=== PATIENT | male | born 1990 | race Asian ===

== ENCOUNTER 2017-02-16 03:51 | Inpatient (IN) | payer OTHER ==
[~2017-02-16] VITALS: Ht 167.6 cm; Wt 86.5 kg
--- NOTE | ~2017-02-16 | CO ---
Unit #: [id number] #: [id number] Patient: DENISE LEDEZMA [id number] [facility] [address] [place], [place] [address] [id number] I MR#: [id number] NAME: DENISE LEDEZMA ROOM: CIC2 Age: 26 Sex: M Admission Date: 02/16/2017 : 1990 Attending Physician: Greg English M.D. Primary Care Physician: Primary Care Physician No Consultation Date: 02/16/2017 CONSULTATION REPORT REQUESTING PHYSICIAN Dr. Petty. REASON FOR CONSULTATION Sepsis. HISTORY OF PRESENT ILLNESS This is a 26-year-old gentleman, who is currently on the vent and is unresponsive. History was obtained from the girlfriend who lives with him. According to her, the patient was visiting [place] and when she was talking to him over the phone on the video call, she felt that he was falling asleep while driving, so she asked him to kiln puller and she went to get him. In [place], she found him at a remote location and he was sleeping in the car. She brought him back. During the trip back to [place], he was sleeping all the time in the car, but he never had any fever or headache. He fell more asleep at home and developed what appeared to be cyanosis of the lips and she put him in the car and brought him to the [facility], where he was intubated and transferred to [facility]. Apparently, he was given Narcan and his drug screen was positive for multiple substances. According to the fiancee, the patient does not use IV drugs. She actually denies that he uses any drugs at all other than occasional marijuana. He was put on vancomycin and Zosyn. ID was consulted. The patient is currently on the vent, unresponsive, and sedated. He has no fever, but is tachycardic and there is no hypotension either. He has no skin rash other than few bug bites in the legs. He had elevated lactic acid level and leukocytosis and there was hypotension initially seen in the ER. Further information is not available at this time. PAST MEDICAL HISTORY According to the fiancee, he does not have any chronic medical problems. HOME MEDICATIONS None. In the hospital, he is on Zosyn, vancomycin, IV fluids, propofol. He did receive Norcuron and naloxone in the ER. ALLERGIES None. PERSONAL HISTORY He is a construction field engineer. According to the fiancee, he smokes marijuana occasionally. He has history of IV drug use years ago, but she had not been seen him doing IV drugs in a long time. No alcohol other than social drinks and some smoking. Unit #: [id number] #: [id number] Patient: DENISE LEDEZMA FAMILY HISTORY Unknown. PHYSICAL EXAMINATION GENERAL: Reveals a young male, who is vent, orally intubated, unresponsive. I think his neck is a little stiff, but I cannot be 100% sure. VITAL SIGNS: Temperature is 99, heart rate 120, respirations 20, blood pressure 105/77. His lowest blood pressure was in 80s in the ER. HEENT: Pupils are constricted. There is no rash other than few bug bites in the legs. LUNGS: Clear to percussion and auscultation. HEART: Sounds normal. There are no murmurs. ABDOMEN: Soft and nontender without organomegaly or ascites. Bowel sounds normal. NEUROLOGIC: He is obtunded, unresponsive, and sedated. He does not have any flaccidity of the muscles and deep tendon reflexes are depressed. DIAGNOSTIC STUDIES LABORATORY RESULTS: Lactic acid 7.5, BUN is 14, creatinine 1.7. Electrolytes normal. Glucose 250. AST 79, ALT 49, alkaline phosphatase 111, bilirubin normal. White count 23.3, hemoglobin 12.9, platelets 274, neutrophils 72%. Alcohol was less than 0.5. Urinalysis shows 10 to 25 rbc's. Urine drug screen was positive for benzodiazepine, cocaine, amphetamines, marijuana, and opiates. IMPRESSION Respiratory failure with mental status, unclear etiology. He suddenly could have drug overdose, but central nerve system infection is difficult to exclude especially West Nile encephalitis. RECOMMENDATIONS I have spoken with Dr. Martin regarding doing a lumbar puncture at the bedside and checking CSF for cell count, glucose protein, Gram stain, and HCV PCR. We will also keep 5 mL in the lab for further testing if necessary. If the CSF is entirely clear, then CSF infection becomes a very unlikely. In this case, antibiotics may have to be discontinued. In the meantime, I will continue him on vancomycin and change Zosyn to high-dose ceftriaxone and add acyclovir until the infection becomes clear. Thank you Dr. Petty for asking me to see this patient. We will follow along with you. Dictated by... Kelly Oneal/jossie TD: 02/18/2017 03:09 JOB #: [id number] Unit #: [id number] #: [id number] Patient: DENISE LEDEZMA CONSULTATION REPORT Page 1 of 1 X Davion Winkler MD X CONSULTATION REPORT
--- NOTE | ~2017-02-16 | CR72 ---
[facility] A Service of [facility] RADIOLOGY TEXT RESULTS PATIENT: DENISE LEDEZMA LOCATION: [address] : [birth year] UNIT #: [id number] AGE: [address]: Greg English MD SEX: M ORDER DR: [id number] [place] [id number] [facility]. [place], [place] [address] [id number] I MR#: [id number] Acc #: [id number] NAME: DENISE LEDEZMA : 1990 SEX: M STUDY DATE/TIME: 02/16/2017 7:09 UNIT: [facility] ROOM: [facility] STUDY DESCRIPTION: CR Chest Single View Portable Attending Physician: Greg English M.D. Ordering Physician: Sorin Singh M.D. Primary Care Physician: Primary Care Physician No MEDICAL IMAGING REPORT This report is preliminary unless electronic signature is present EXAM Portable AP view of the chest COMPARISON February 16, 2017 at 4:25 a.m. INDICATION 26-year-old male with respiratory failure requiring endotracheal intubation today. Dyspnea and altered mental status today. Possible drug overdose. Endotracheal tube placement. FINDINGS AND IMPRESSION There is adequate position of endotracheal tube with the tip terminating 4.5 cm above the lyn. No evidence of pneumothorax. There is increased hazy attenuation over the left lower chest which may reflect prominent soft tissue shadow but developing small left pleural effusion cannot be excluded. Allowing for differences in lung volumes there are likely stable interstitial and alveolar opacities in the right lung possibly reflecting aspiration. There is increased medial left basilar lung opacity likely reflecting atelectasis. Cardiomediastinal silhouette is within normal limits. Dictated by... Charles Britt M.D. THIS IS AN ELECTRONICALLY VERIFIED REPORT Charles Britt M.D. at 02/25/2017 1:24 AM Baljeet TD: 02/17/2017 03:30 [facility] A Service [facility] RADIOLOGY TEXT RESULTS PATIENT: DENISE LEDEZMA LOCATION: [address] : [birth year] UNIT #: [id number] AGE: [address]: Greg English MD SEX: M ORDER DR: JOB #: [id number] MEDICAL IMAGING REPORT Page 1 of 1 COPY
--- NOTE | ~2017-02-16 | HP ---
Unit #: [id number] #: [id number] Patient: DENISE LEDEZMA [id number] [facility] [address] [place], [place] [address] [id number] I MR#: [id number] NAME: DENISE LEDEZMA ROOM: 60115 Age: 26 Sex: M Admission Date: 02/16/2017 : 1990 Attending Physician: Inocencio Mabry M.D. Primary Care Physician: No Primary Care Physician HISTORY AND PHYSICAL HISTORY OF PRESENT ILLNESS This is a 26-year-old male with a history of IV drug abuse in the past and also history of polysubstance abuse. As per herberth at the bedside, tells that he has been gone for four days with his friends and he came home with altered mental status. EMS was called. He received several doses of Narcan, came to the emergency room where he was intubated due to the agitation. He was brought into [facility] where he has been sedated with a Diprivan drip. No history is available from the patient. He is unresponsive, nonverbal, intubated. On his labs, his lactic acid was 7.5. On admission, his white cell count is over 23,000. Has been hypotensive with a blood pressure of 90/49 this morning. He has been treated with IV fluids aggressively in the ER. Received a dose of Zosyn and vancomycin in ER. He is being admitted at the unit bed. REVIEW OF SYSTEMS Not obtainable from the patient. SOCIAL HISTORY History of IV drug abuse and polysubstance abuse. Lives with adam. MEDICATIONS Unknown. FAMILY HISTORY Unknown. PHYSICAL EXAMINATION GENERAL: He is sedated and intubated. VITAL SIGNS: His temperature is 98.1 rectal, pulse is 93, respirations 24, blood pressure 105/77. HEENT: Pupils are pinpoint and constricted, very minimally reactive to light. NECK: Supple. No thyromegaly noted. No bruit. CHEST: Decreased air entry bilaterally. CARDIOVASCULAR: Regular rhythm. S1, S2. ABDOMEN: Soft, nontender. No masses palpable. EXTREMITIES: No edema noted. No ulcers. DIAGNOSTIC STUDIES LABORATORY: On his labs, blood gas is 7.36, pCO2 is 41.6, pO2 is 76, bicarbonate 23.7. However, on admission his pH was 7.22. Chemistry: Glucose 250, creatinine 1.7, sodium 138, potassium 4, chloride 100, CO2 is 24. Lactic acid is 7.5. AST 79, ALT 49. Hematology: White cell count 23.3, hemoglobin 12.9, platelets 274,000. Urinalysis was negative, 04-16 Unit #: [id number] #: [id number] Patient: DENISE LEDEZMA RBCs, no bacteria. Urine toxicology is positive for cocaine, benzodiazepines, marijuana, opiates. Negative for barbiturates. ASSESSMENT 1. Respiratory failure secondary to the polysubstance overdose. 2. Polysubstance drug abuse. 3. History of IV abuse. 4. Sepsis, secondary to the above. PLAN 1. Admit to the intensive care unit. 2. Aggressive IV hydration with normal saline. 3. IV antibiotics, start on vancomycin and Zosyn. Pharmacy will dose the antibiotics. Get infectious disease consult. 4. Consult pulmonary, Dr. Martin. 5. Check blood cultures. 6. Deep venous thrombosis prophylaxis. 7. Monitor electrolytes. 8. Check 2D echo. 9. Check CT scan of the head. Dictated by Kelly Rosario/oziel TD: 02/16/2017 10:13 JOB #: [id number] HISTORY AND PHYSICAL Page 1 of 1 X Franco Petty MD HISTORY AND PHYSICAL
--- NOTE | ~2017-02-16 | CO ---
Unit #: [id number] #: [id number] Patient: DENISE LEDEZMA [id number] [address] [place], [place] [address] [id number] I MR#: [id number] NAME: DENISE LEDEZMA ROOM: [facility] Age: 26 Sex: M Admission Date: 02/16/2017 : 1990 Attending Physician: Greg English M.D. Primary Care Physician: No Primary Care Physician CONSULTATION REPORT REASON FOR CONSULTATION Critical care management. CHIEF COMPLAINT Altered mental status. 26-year-old male, with a past medical history of IV drug use, presented with a complaint of altered mental status. Was found to be hypoxic and intubated with altered mental status and brought into the emergency room. I am seeing the patient at bedside. Currently intubated, sedated. REVIEW OF SYSTEMS Unobtainable. PAST MEDICAL HISTORY IV drug use. MEDICATION Unknown. FAMILY HISTORY Unknown. PHYSICAL EXAMINATION VITAL SIGNS: Temperature 98, pulse 87, respirations 16, blood pressure is 110/70. NEUROLOGICAL: Intubated, sedated. CVS: S1+ S2. RESPIRATIONS: Bilateral air entry, bilateral mild rhonchi. GI: Nontender, soft. Bowel sounds positive. EXTREMITIES: No edema. SKIN: No rashes, no ulcers. LYMPHATIC: No lymphadenopathy. DIAGNOSTIC STUDIES Labs and imaging has been reviewed. ASSESSMENT AND PLAN 1. Acute respiratory failure. 2. Altered mental status. 3. Drug overdose. 4. Leukocytosis. 5. Aspiration pneumonia. Unit #: [id number] #: [id number] Patient: DENISE LEDEZMA Plan is to continue IV antibiotics, IV hydration, oxygen, bronchodilator. Monitor creatinine. GI and DVT prophylaxis. Please see orders for detailed plan. Thank you very much for this consultation. Prognosis is guarded. Discussed with the family at the bedside. Dictated by... Kelly Chapa/chicho TD: 02/17/2017 05:02 JOB #: [id number] CONSULTATION REPORT Page 1 of 1 X Kelly Martin MD X CONSULTATION REPORT
--- NOTE | ~2017-02-16 | EKG ---
PATIENT: DENISE LEDEZMA UNIT #: [id number] Ventricular Rate: 116 BPM Atrial Rate: 116 BPM P-R Interval: 150 ms QRS Duration: 82 ms Q-T Interval: 332 ms QTC Calculation(Bezet): 461 ms P Branch: 73 degrees Calculated R Branch: 81 degrees Calculated T Branch: 51 degrees Diagnosis Line: Sinus tachycardia Diagnosis Line: Otherwise normal ECG Diagnosis Line: No previous ECGs available Diagnosis Line: Confirmed by MACKENZIE FERNANDEZ MD ([id number]) on Diagnosis Line: 02/17/2017 1:50:48 PM INTERPRETING MD: REBECCA WALKER
--- NOTE | ~2017-02-16 | CT71 ---
[facility] A Service [facility] RADIOLOGY TEXT RESULTS PATIENT: DENISE LEDEZMA LOCATION: [address] : [birth year] UNIT #: [id number] AGE: [address]: Greg English MD SEX: M ORDER DR: [id number] [address] [address] [id number] I MR#: [id number] Acc #: [id number] NAME: DENISE LEDEZMA : 1990 SEX: M STUDY DATE/TIME: 02/16/2017 10:04 UNIT: [facility] ROOM: [facility] STUDY DESCRIPTION: CT Head Wo Contrast Attending Physician: Greg English M.D. Ordering Physician: Sorin Singh M.D. Primary Care Physician: Primary Care Physician No MEDICAL IMAGING REPORT This report is preliminary unless electronic signature is present EXAM CT head without contrast INDICATION Unresponsive today. Respiratory failure. Mechanical ventilation. Concern for intracranial hemorrhage. TECHNIQUE CT of the head was performed without contrast. This CT examination was performed with one or more of the following radiation dose reduction techniques: automatic exposure control, adjustment of mA and/or kV according to patient size, and iterative reconstruction. COMPARISON None. FINDINGS There is no intracranial hemorrhage. There is no evidence for acute cortical based infarction, focal mass lesion or hydrocephalus. Mucosal thickening and opacification of multiple paranasal sinuses. Bone windows are unremarkable. IMPRESSION No acute intracranial abnormality. Dictated by... Chris Vivas M.D. THIS IS AN ELECTRONICALLY VERIFIED REPORT Chris Vivas M.D. at 02/17/2017 7:34 AM ARS/valentin [facility] A Service [facility] RADIOLOGY TEXT RESULTS PATIENT: DENISE LEDEZMA LOCATION: [address] : [birth year] UNIT #: [id number] AGE: [address]: Greg English MD SEX: M ORDER DR: TD: 02/17/2017 06:25 JOB #: [id number] MEDICAL IMAGING REPORT Page 1 of 1 COPY
--- NOTE | ~2017-02-16 | CR72 ---
[facility] A Service of [facility] RADIOLOGY TEXT RESULTS PATIENT: DENISE LEDEZMA LOCATION: CICCU2 CICCU2-06 : [birth year] UNIT #: [id number] AGE: [address]: Greg English MD SEX: M ORDER DR: [id number] [address] [address] [id number] MR#: [id number] Acc #: [id number] NAME: DENISE LEDEZMA : 1990 SEX: M STUDY DATE/TIME: 02/16/2017 4:25 UNIT: SED ROOM: STUDY DESCRIPTION: CR Chest Single View Portable Attending Physician: Miguel Belcher M.D. Ordering Physician: Miguel Belcher M.D. Primary Care Physician: No Primary Care Physician MEDICAL IMAGING REPORT This report is preliminary unless electronic signature is present. EXAM Portable chest. HISTORY Acute mental status decline. Possible drug overdose today. Intubated. Respiratory distress. FINDINGS ETT tip is 3 cm above the lyn. Moderate patchy infiltrates in the right upper lobe and medial right lower lobe. These could be secondary to pneumonia or aspiration. Left lung is clear. Cardiac size and pulmonary vascularity are within normal limits. Dictated by... Omar Blevins M.D. THIS IS AN ELECTRONICALLY VERIFIED REPORT Omar Blevins M.D. at 02/17/2017 4:50 AM DFArianne/manas TD: 02/17/2017 00:13 JOB #: [id number] MEDICAL IMAGING REPORT Page 1 of 1
[2017-02-16 04:19] LABS: BASOPHIL# 0.1 X10e3 (0-0.3); BASOPHIL% 0.6 % (0-2.5); EOSINOPHIL# 1.4 X10e3 (0-0.7); EOSINOPHIL% 5.9 % (0.0-7.0); HEMATOCRIT 45.4 % (38.0-50.0); HEMOGLOBIN 12.9 gm/dL (13.0-16.0); LYMPHOCYTE# 4.5 X10e3 (1.0-3.5); LYMPHOCYTE% 19.3 % (17.0-45.0); MEAN CELL VOLUME 68.4 FL (83-96); MEAN CORPUSCULAR HEMOGLOBIN 19.4 PG (28-34); MEAN CORPUSCULAR HGB CONC 28.4 g/dL (30-36); MEAN PLATELET VOLUME 8.9 FL (6.5-11.5); MONOCYTE# 0.5 X10e3 (0-1.0); MONOCYTE% 2.2 % (3.0-12.0); NEUTROPHIL# 16.8 X10e3 (1.5-7.1); PLATELET COUNT 274 X10e3 (140-420); RED BLOOD COUNT 6.65 X10e (3.90-5.60); RED CELL DISTRIBUTION WIDTH 16.3 % (11.0-15.5); WHITE BLOOD COUNT 23.3 X10e3 (4.0-10.5)
[2017-02-16 04:24] LABS: INR 1.1; PROTHROMBIN TIME (PATIENT) 12.4 SECONDS (9.5-12.4)
[2017-02-16 04:27] LABS: DIFF IND YES
[2017-02-16 04:30] LABS: POC - CKMB 2.7 ng/mL (0.0-7.9)
[2017-02-16 04:31] LABS: PARTIAL THROMBOPLASTIN TIME 25.3 SECONDS (25.6-38.1)
[2017-02-16 04:31] LABS: POC - TROPONIN <0.05 ng/mL (<=0.05)
[2017-02-16 04:33] LABS: ALBUMIN SERUM 4.3 g/dL (3.5-5.0); BILIRUBIN, DIRECT 0.1 mg/dL (0.0-0.2); BILIRUBIN,INDIRECT 0.4 mg/dL (0.0-0.9); BILIRUBIN,TOTAL 0.5 mg/dL (0.2-2.0); BUN/CREATININE RATIO 8.23; CALCIUM SERUM 8.7 mg/dL (8.4-10.2); CREATININE SERUM 1.7 mg/dL (0.6-1.4); GLOM FILT RATE Estimated 53.7 mL/min (>60); PROTEIN TOTAL SERUM 7.6 g/dL (6.0-8.3)
[2017-02-16 04:46] LABS: DIFFERENTIAL COMMENT Y; PLATELET ESTIMATE NORMAL (NORMAL)
[2017-02-16 04:51] LABS: URINE SOURCE CATH
[2017-02-16 04:55] LABS: URINE APPEARANCE CLEAR; URINE BILIRUBIN NEG (NEG); URINE BLOOD 1+ (NEG); URINE COLOR YELLOW; URINE GLUCOSE 50 MG/DL (NORM); URINE KETONE NEG (NEG); URINE LEUKOCYTE ESTERASE NEG (NEG); URINE NITRATE NEG (NEG); URINE PROTEIN 1+ (NEG); URINE SPECIFIC GRAVITY 1.025 (1.003-1.035)
[2017-02-16 04:59] LABS: ARTERIAL BLD GAS O2 SATURATION 97.5 % (90.0-100.0); ARTERIAL BLOOD GAS CARBOXY HB 2.8 %sat (0.0-9.0); ARTERIAL BLOOD GAS HCO3 20.5 mmol/L
[2017-02-16 05:01] LABS: ARTERIAL BLOOD GAS ART SITE RIGHT RADIAL; ARTERIAL BLOOD GAS MET HB <0.0 %sat (0.0-2.0); ARTERIAL DRAW? YES
[2017-02-16 05:04] LABS: MICRO INDICATED? YES
[2017-02-16 05:07] LABS: CULTURE INDICATED? NO; URINE BACTERIA NEG (NEG); URINE MUCUS PRESENT; URINE SQUAMOUS EPITHELIAL CELL FEW /[HPF]
[2017-02-16 05:10] LABS: AMPHETAMINE POS (NEG); BARBITURATES NEG (NEG); BENZODIAZEPINES POS (NEG); COCAINE POS (NEG); MARIJUANA POS (NEG); OPIATES POS (NEG); TRICYCLIC ANTIDEPRESSANTS NEG (NEG); U METHADONE NEG (NEG)
[2017-02-16 07:42] LABS: ARTERIAL BLD GAS O2 SATURATION 94.6 % (90.0-100.0); ARTERIAL BLOOD GAS HCO3 23.7 mmol/L; ARTERIAL BLOOD GAS MET HB 1.3 %sat (0.0-2.0); ARTERIAL BLOOD GAS PCO2 41.6 mmHg (35.0-45.0); ARTERIAL BLOOD GAS pH 7.364 (7.350-7.450)
[2017-02-16 07:43] LABS: ARTERIAL BLOOD GAS ALLEN TEST NORMAL; ARTERIAL BLOOD GAS ART SITE RIGHT RADIAL; ARTERIAL BLOOD GAS DELIVERY VENT; ARTERIAL BLOOD GAS VENT MODE A/C; ARTERIAL DRAW? YES
== END 2017-02-16 20:52 | disposition left against medical advice (07) | DRG 917 ==
LOC: SED 03:51 → CED 04:25 → CEDOF 07:40 → CED 08:11 → CEDOF 08:11 → CICCU2 08:11 → CEDOF 10:31 → CICCU2 20:52
PROVIDERS: Emergency Medicine
PROC: 5A1935Z Respiratory Ventilation, Less than 24 Consecutive Hours (ICD-10-PCS; principal; 2017-02-16)
PROC: B24BYZZ Ultrasonography of Heart with Aorta using Other Contrast (ICD-10-PCS; 2017-02-16)
DX: T50.901A Poisoning by unspecified drugs, medicaments and biological substances, accidental (unintentional), initial encounter (principal); A41.9 Sepsis, unspecified organism; R65.21 Severe sepsis with septic shock; J96.01 Acute respiratory failure with hypoxia; J69.0 Pneumonitis due to inhalation of food and vomit; N17.9 Acute kidney failure, unspecified; D72.829 Elevated white blood cell count, unspecified; R73.9 Hyperglycemia, unspecified
CPT/HCPCS: 31500; 36600; 51702; 70450; 71010; 80048; 80076; 80307; 81003; 82553; 82803; 82947; 83605; 83874; 84484; 85025; 85610; 85730; 87040; 93005; 93306; 94002; 94640; 94760; 96365; 96375; 99291; 99292; G0480; J0133; J0330; J0696; J2543; J3370

== ENCOUNTER 2017-02-17 11:07 | Inpatient (IN) | payer OTHER ==
[~2017-02-17] VITALS: Ht 167.6 cm; Wt 87.0 kg
--- NOTE | ~2017-02-17 | HP ---
Unit #: [id number] #: [id number] Patient: DENISE LEDEZMA [id number] [address] [address] [id number] I MR#: [id number] NAME: DENISE LEDEZMA ROOM: 07[address] Age: 26 Sex: M Admission Date: 02/17/2017 : 1990 Attending Physician: Catie Dutta M.D. Primary Care Physician: No Primary Care Physician HISTORY AND PHYSICAL CHIEF COMPLAINT Intubated yesterday, short of air, worse today. HISTORY OF PRESENT ILLNESS The patient is a 26-year-old male with past medical history of polysubstance abuse, who presented to the emergency department for evaluation of the above. Of note the patient was hospitalized yesterday following overdose. His tox screen at that time was positive for benzodiazepines, cocaine, amphetamines, marijuana and opiates. He was intubated. He received vancomycin and Zosyn. He apparently extubated himself and left against medical advice. Today he returned due to body-wide pain and shortness of breath. Regarding the overdose, the patient apparently was in [place] for a . He denies IV drug use. He states that he "may have touched some drugs." He does have a history of IV drug use. He has never been in rehab. The patient was apparently "too tired" to drive home. His girlfriend drove him home from [place]. He was able to walk in their home but then he became somewhat unresponsive and EMS was called. The patient denies any suicidal or homicidal ideations. Today, as stated above, he reports body-wide pain. He has had a productive cough and shortness of breath. He states that he has had pain in the chest that he describes as "sharp." He denies any vomiting or diarrhea. He states that his urine was initially bloody. He reportedly pulled out his Mary catheter before the balloon was deflated. Urine is no longer bloody. Upon arrival in the emergency room initial pulse and blood pressure were 95 and 140/82 respectively. Oxygen saturation 100% on room air. Chest x-ray is negative. Lactic acid is 2. CPK is 244. White blood cell count 15.6. Urine tox screen today is positive for benzodiazepines, cocaine, marijuana and opiates. He was given vancomycin, Zosyn and tobramycin in the emergency department. He is being admitted [facility] for evaluation and further treatment. PAST MEDICAL HISTORY 1. Admission to [facility] February 16, 2017 for polysubstance overdose, unintentional, requiring intubation. The patient left AMA. 2. The patient denies hospitalizations prior to yesterday. PAST SURGICAL HISTORY Unit #: [id number] #: [id number] Patient: DENISE LEDEZMA None. SOCIAL HISTORY The patient lives with his girlfriend. He has a history of IV drug use but states that his last use was over a year ago. He denies alcohol. He smokes a pack of cigarettes daily. He is unemployed. FAMILY HISTORY Family history is notable for his mother having arthritis. ALLERGIES No known allergies. HOME MEDICATIONS None. REVIEW OF SYSTEMS A complete review of systems is negative except as indicated in the HPI. DIAGNOSTIC STUDIES CARDIOVASCULAR: EKG shows normal sinus rhythm with a rate of 97 beats per minute. IMAGING: Chest x-ray shows no acute abnormality. LABORATORY: Lactic acid is 2. INR is 1.2. CPK is 244. Alcohol level is less than 5. BNP is 94. Comprehensive metabolic panel notable for a glucose of 127, ALT is 46. Complete blood count notable for white blood cell count of 15.6, hemoglobin and hematocrit 11.7 and 38.7 respectively. Troponin is less than 0.05. Urine tox screen positive for benzodiazepines, cocaine, marijuana, opiates. Urinalysis notable for trace protein. PHYSICAL EXAMINATION VITAL SIGNS: Temperature is 97.8. Pulse 95. Respirations 18. Blood pressure 140/82. Oxygen saturation 100% on room air. GENERAL: The patient is awake and alert, in no acute distress. HEENT: The head is atraumatic. Mucous membranes are moist. NECK: Neck is supple. Trachea is midline. CARDIOVASCULAR: Regular rate and rhythm. LUNGS: Demonstrate a few scattered rhonchi. Breathing is not labored. ABDOMEN: Abdomen is soft, nontender, with bowel sounds present in all four quadrants. EXTREMITIES: Nontender, with no pedal edema. NEUROLOGIC: The patient is awake and alert. He is oriented x3. He follows commands. PSYCHIATRIC: Mood and affect are normal. The patient is cooperative. SKIN: Skin of examined areas is warm and dry. ASSESSMENT The patient is a 26-year-old male with: 1. Aspiration pneumonia. The patient received vancomycin, tobramycin and Zosyn in the emergency department. 2. Sepsis with lactic acid of 2. Lactic acid was as high as 7.5 yesterday morning. The patient received 2 L of normal saline in the emergency department. 3. History of polysubstance overdose, unintentional. Tox screen yesterday was positive for benzodiazepines, cocaine, amphetamines, marijuana and opiates. Unit #: [id number] #: [id number] Patient: DENISE LEDEZMA 4. Mild rhabdomyolysis. The patient's CK was 244 today. I do not see a CPK from yesterday. 5. Tobacco abuse. PLAN 1. Admit to intermediate level. 2. Normal saline at 125 mL an hour. 3. Regular diet if passes bedside swallow. 4. Fall precautions. 5. PT/OT to evaluate and treat. 6. Supplemental oxygen. 7. P.r.n. Toradol. 8. Blood cultures x2. 9. Sputum culture and sensitivity. 10. Procalcitonin level. 11. Vancomycin IV and Zosyn IV pending further workup. 12. Two-D echo if not done yesterday. 13. Mucinex 600 mg p.o. b.i.d. 14. DuoNeb q.4 h. p.r.n. 15. Serial cardiac enzymes. 16. Sepsis protocol with repeat lactic acid. 17. Consult Dr. Martin regarding aspiration pneumonia. 18. privacy compliance manager and social work consult regarding polysubstance abuse. 19. Check HIV and hepatitis panel. 20. Repeat labs in the morning including CPK. 21. Repeat chest x-ray in the morning. 22. Additional workup and consultants based on above. 23. SCDs for DVT prophylaxis. Dictated by Catie Dutta M.D. JESSICA/artur TD: 02/17/2017 18:10 JOB #: [id number] HISTORY AND PHYSICAL Page 1 of 1 X Catie Dutta MD X HISTORY AND PHYSICAL
--- NOTE | ~2017-02-17 | CO ---
Unit #: [id number] #: [id number] Patient: DENISE LEDEZMA [id number] [address] [address] [id number] I MR#: [id number] NAME: DENISE LEDEZMA ROOM: 572 Age: 26 Sex: M Admission Date: 02/17/2017 : 1990 Attending Physician: Osvaldo Lu M.D. Primary Care Physician: No Primary Care Physician Consultation Date: 02/18/2017 CONSULTATION REPORT REASON FOR CONSULT Aspiration pneumonia. CHIEF COMPLAINT Shortness of breath. HISTORY OF PRESENT ILLNESS This is a 26-year-old male with a past medical history significant for polysubstance abuse, who presented to the emergency room with generalized weakness and shortness of breath accompanied with productive cough of dark sputum. Patient denied any fever, chills or night sweats. Of note, patient was hospitalized just two days ago for drug overdose and he was intubated at the time. However, he self-extubated and left against medical advice. Per his fiancee, when he went home his condition continued to worsen and he felt so weak and short-winded so she finally brought him back to the emergency room. Per the girlfriend, the patient is not just polysubstance abuser but also he is a drug dealer. However, he doesn't do IV drugs, at least for the last year and a half. In the emergency room, his chest x-ray showed improvement compared to the one from two days ago that was consistent with aspiration pneumonia. PAST MEDICAL HISTORY Polysubstance abuse. PAST SURGICAL HISTORY None. SOCIAL HISTORY The patient lives with his girlfriend. He had a history of IV drug abuse with heroin but he stopped one and a half years ago. 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 The patient doesn't drink but he smokes at least one pack per day. He is unemployed. FAMILY HISTORY Arthritis. ALLERGIES No known drug allergies. HOME MEDICATIONS Unit #: [id number] #: [id number] Patient: DENISE LEDEZMA None. REVIEW OF SYSTEMS Twelve point review of systems were obtained and were negative except for what was mentioned in the HPI. PHYSICAL EXAMINATION GENERAL: The patient is in no acute distress. VITAL SIGNS: Blood pressure 141/81, respiratory rate 18, O2 saturation 100% on room air. HEENT: Atraumatic, normocephalic. PERRLA, EOMI. NECK: Supple. No JVD, no lymphadenopathy. CHEST: Bilateral fine rhonchi at the bases. HEART: S1, S2. No murmur, gallops or rubs. ABDOMEN: Soft, nontender. Bowel sounds positive. No hepatosplenomegaly. EXTREMITIES: No edema or cyanosis. SKIN: No rashes. ATTORNEY AT [employer]: Awake, alert, oriented x3. No focal motor/sensory deficits. LABS AND OTHER TESTS Creatinine 1.7, potassium 4.0, white blood count 12.9, hemoglobin 11.5, platelets 167. Chest x-ray reviewed and noted by me and compared to the one from two days ago. ASSESSMENT 1. Aspiration pneumonia. 2. Polysubstance abuse. 3. Chronic anemia. 4. Leukocytosis. 5. Acute kidney injury, resolved. PLAN 1. The patient is hemodynamically stable on room air. 2. Will continue vanc, Zosyn but will de-escalate as soon as his cultures are final. 3. Bronchodilator and mucolytics. 4. Gentle IV hydration and monitor urine output and creatinine. 5. DVT prophylaxis. Patient was counseled extensively regarding polysubstance abuse and smoking. However, he is not interested at this time in any psych or rehab eval. I discussed also his condition with his fiancee and I advised for family support to pursue rehab. I would like to thank Dr. Dutta for allowing me to be part of this patient's care. Dictated by... Pau Martinez M.D. Unit #: [id number] #: [id number] Patient: DENISE LEDEZMA SKYLAR/chicho TD: 02/18/2017 13:18 JOB #: [id number] CONSULTATION REPORT Page 1 of 1 X PAU HYATT MD CONSULTATION REPORT
--- NOTE | ~2017-02-17 | EKG ---
PATIENT: DENISE LEDEZMA UNIT #: [id number] Ventricular Rate: 97 BPM Atrial Rate: 97 BPM P-R Interval: 142 ms QRS Duration: 82 ms Q-T Interval: 380 ms QTC Calculation(Bezet): 482 ms P [place]: 45 degrees Calculated R [place]: 15 degrees Calculated T [place]: 18 degrees Diagnosis Line: Normal sinus rhythm Diagnosis Line: Prolonged QT Diagnosis Line: Abnormal ECG Diagnosis Line: No previous ECGs available Diagnosis Line: Confirmed by STEVE MO MD ([id number]) on 02/17/2017 Diagnosis Line: 8:00:05 PM INTERPRETING MD: CHEPE WALKER
--- NOTE | ~2017-02-17 | CR72 ---
[facility] A Service of [facility] RADIOLOGY TEXT RESULTS PATIENT: DENISE LEDEZMA LOCATION: [facility] [address] : [birth year] UNIT #: [id number] AGE: [address]: Osvaldo Lu MD SEX: M ORDER DR: [id number] [place], [place] [address] [id number] I MR#: [id number] Acc #: [id number] NAME: DENISE LEDEZMA : 1990 SEX: M STUDY DATE/TIME: 02/17/2017 11:49 [id number] STUDY DESCRIPTION: CR Chest Single View Portable Attending Physician: Catie Dutta M.D. Ordering Physician: Fidelina Vee M.D. MEDICAL IMAGING REPORT This report is preliminary unless electronic signature is present EXAM Portable chest HISTORY Drug overdose yesterday. Patient returns today with shortness of breath persisting. TECHNIQUE A single AP view of the chest was obtained. COMPARISON STUDIES 02/16/2017. FINDINGS The heart and mediastinum are normal in configuration. Both lungs are fully expanded and clear. The inspiratory effort is shallow. No pleural fluid is seen. IMPRESSION Shallow inspiratory effort. Negative chest. Dictated by... Liam Atkinson M.D. THIS IS AN ELECTRONICALLY VERIFIED REPORT Liam Atkinson M.D. at 02/25/2017 1:55 PM RLF/pcl TD: 02/17/2017 17:42 JOB #: [id number] [facility] A Service of [facility] RADIOLOGY TEXT RESULTS PATIENT: DENISE LEDEZMA LOCATION: [facility] 572-01 : [birth year] UNIT #: [id number] AGE: [address]: Osvaldo Lu MD SEX: M ORDER DR: MEDICAL IMAGING REPORT Page 1 of 1 COPY
--- NOTE | ~2017-02-17 | CR63 ---
[facility] A Service of [facility] RADIOLOGY TEXT RESULTS PATIENT: DENISE LEDEZMA LOCATION: [facility] 572-01 : [birth year] UNIT #: [id number] AGE: [address]: Osvaldo Lu MD SEX: M ORDER DR: [id number] [facility] [address] [facility] [place], [place] [address] [id number] MR#: [id number] Acc #: [id number] NAME: DENISE LEDEZMA : 1990 SEX: M STUDY DATE/TIME: 02/18/2017 9:52 UNIT: [facility] ROOM: [facility] STUDY DESCRIPTION: CR Chest 2 View Attending Physician: Osvaldo Lu M.D. Ordering Physician: Catie Dutta M.D. Primary Care Physician: Primary Care Physician No MEDICAL IMAGING REPORT This report is preliminary unless electronic signature is present EXAM Chest PA and lateral 02/18/2017 HISTORY Shortness of breath and chest pain for 3 days, pneumonia. FINDINGS PA and lateral examination of the chest upright shows a good expansion of the parenchyma with a normal distribution of the pulmonary vascularity. There is no indication of congestion, effusion, infiltrate, tumor, or nodular density. The pleural reflections and diaphragmatic contours are normal. The cardiac silhouette and mediastinal anatomy is within normal limits. IMPRESSION Normal chest. Dictated by... Damon Bermudez M.D. THIS IS AN ELECTRONICALLY VERIFIED REPORT Damon Bermudez M.D. at 02/19/2017 7:46 AM SKY/javier TD: 02/18/2017 12:00 JOB #: [id number] MEDICAL IMAGING REPORT Page 1 of 1 COPY
--- NOTE | ~2017-02-17 | DS ---
Unit #: [id number] #: [id number] Patient: DENISE LEDEZMA [id number] [address] [address] [id number] I MR#: [id number] NAME: DENISE LEDEZMA ROOM: 572 Age: 26 Sex: M Admission Date: 02/17/2017 : 1990 Discharge Date: 02/19/2017 Attending Physician: Osvaldo Lu M.D. Primary Care Physician: Primary Care Physician No DISCHARGE SUMMARY DISCHARGE DIAGNOSES 1. Aspiration pneumonia. 2. Drug abuse. 3. Sepsis. HOSPITAL COURSE The patient is a 26-year-old male admitted 02/17/17, for aspiration pneumonia. He had been admitted to this facility on 02/16/17 for respiratory failure, sepsis, and aspiration pneumonia. He was intubated and admitted to the intensive care unit. When he awoke he self-extubated, removed his IV lines, and left the hospital AMA. Upon returning home, apparently, he became increasingly short of breath and complained of diffuse body pain. At the behest of his girlfriend, he returned and was readmitted. During this admission, the patient was afebrile, his white count continued to trend down having been 23 when he was admitted on 02/16 and is currently 12.9. He is not requiring any oxygen and has been ambulating without difficulty. Given this, the patient is being discharged home to complete a course of antibiotics or aspiration pneumonia. He has been counseled on drug abuse. His tox screen upon presentation was positive for benzodiazepines, cocaine, amphetamines, marijuana, and opiates. DISCHARGE MEDICATIONS 1. Augmentin 175 mg p.o. daily 2. Albuterol MDI two puffs q.4 hours p.r.n. FOLLOWUP The patient will follow up with [facility] at the soonest available appointment. This has been discussed with the patient and his girlfriend and they agree. Dictated by... Osvaldo Lu M.D. DANA/tai TD: 02/20/2017 06:14 JOB #: [id number] Unit #: [id number] #: [id number] Patient: DENISE LEDEZMA DISCHARGE SUMMARY Page 1 of 1 X Osvaldo Lu MD DISCHARGE SUMMARY
[2017-02-17 12:51] LABS: BASOPHIL# 0.1 X10e3 (0-0.3); BASOPHIL% 0.5 % (0-2.5); EOSINOPHIL# 0.5 X10e3 (0-0.7); EOSINOPHIL% 2.9 % (0.0-7.0); HEMATOCRIT 38.7 % (38.0-50.0); HEMOGLOBIN 11.7 gm/dL (13.0-16.0); LYMPHOCYTE# 1.4 X10e3 (1.0-3.5); MEAN CELL VOLUME 65.2 FL (83-96); MEAN CORPUSCULAR HEMOGLOBIN 19.7 PG (28-34); MEAN CORPUSCULAR HGB CONC 30.2 g/dL (30-36); MEAN PLATELET VOLUME 9.1 FL (6.5-11.5); MONOCYTE# 1.1 X10e3 (0-1.0); MONOCYTE% 6.7 % (3.0-12.0); NEUTROPHIL# 12.6 X10e3 (1.5-7.1); NEUTROPHIL% 80.9 % (40-75); PLATELET COUNT 194 X10e3 (140-420); RED BLOOD COUNT 5.93 X10e (3.90-5.60); RED CELL DISTRIBUTION WIDTH 15.7 % (11.0-15.5); WHITE BLOOD COUNT 15.6 X10e3 (4.0-10.5)
[2017-02-17 12:53] LABS: DIFF IND YES
[2017-02-17 12:59] LABS: INR 1.2; PARTIAL THROMBOPLASTIN TIME 34.9 SECONDS (23.5-31.3); PROTHROMBIN TIME (PATIENT) 12.8 SECONDS (10.0-11.7)
[2017-02-17 13:14] LABS: ALBUMIN SERUM 3.7 g/dL (3.5-5.0); BILIRUBIN, DIRECT 0.2 mg/dL (0.0-0.2); BILIRUBIN,INDIRECT 0.5 mg/dL (0.0-0.9); BILIRUBIN,TOTAL 0.7 mg/dL (0.2-2.0); POTASSIUM 3.9 mmol/L (3.5-5.1)
[2017-02-17 13:19] LABS: ANISOCYTOSIS MOD; PLATELET ESTIMATE NORMAL (NORMAL)
[2017-02-17 13:20] LABS: OVALOCYTES PRESENT
[2017-02-17 13:21] LABS: POIKILOCYTOSIS SL
[2017-02-17 13:22] LABS: HYPOCHROMIA SL
[2017-02-17 13:46] LABS: URINE SOURCE CLEAN CATCH
[2017-02-17 14:10] LABS: POC - CKMB 1.2 ng/mL (0.0-7.9); POC - TROPONIN <0.05 ng/mL (<=0.05)
[2017-02-17 14:22] LABS: AMPHETAMINE NEG (NEG); BARBITURATES NEG (NEG); BENZODIAZEPINES POS (NEG); COCAINE POS (NEG); MARIJUANA POS (NEG); OPIATES POS (NEG); TRICYCLIC ANTIDEPRESSANTS NEG (NEG); U METHADONE NEG (NEG)
[2017-02-17 14:47] LABS: URINE APPEARANCE CLEAR; URINE COLOR YELLOW
[2017-02-17 14:48] LABS: URINE BILIRUBIN NEG (NEG); URINE BLOOD NEG (NEG); URINE GLUCOSE NORM (NEG); URINE KETONE NEG (NEG); URINE LEUKOCYTE ESTERASE NEG (NEG); URINE NITRATE NEG (NEG); URINE PROTEIN TRACE (NEG); URINE SPECIFIC GRAVITY 1.013 (1.003-1.035)
[2017-02-17 14:52] LABS: CULTURE INDICATED? NO
[2017-02-17 18:59] LABS: POC - CKMB 1.2 ng/mL (0.0-7.9); POC - TROPONIN 0.05 ng/mL (<=0.05)
[2017-02-17 22:53] LABS: %MB 1.2 % (0.0-4.0); MB 2.1 ng/ml
[2017-02-18 04:48] LABS: ALBUMIN SERUM 3.5 g/dL (3.5-5.0); BILIRUBIN,TOTAL 0.6 mg/dL (0.2-2.0); CALCIUM SERUM 8.8 mg/dL (8.4-10.2); POTASSIUM 3.3 mmol/L (3.5-5.1); PROTEIN TOTAL SERUM 6.6 g/dL (6.0-8.3)
[2017-02-18 04:58] LABS: BASOPHIL# 0.1 X10e3 (0-0.3); BASOPHIL% 0.5 % (0-2.5); EOSINOPHIL# 1.3 X10e3 (0-0.7); EOSINOPHIL% 10.4 % (0.0-7.0); HEMATOCRIT 38.3 % (38.0-50.0); HEMOGLOBIN 11.5 gm/dL (13.0-16.0); LYMPHOCYTE# 2.1 X10e3 (1.0-3.5); LYMPHOCYTE% 15.9 % (17.0-45.0); MEAN CELL VOLUME 65.2 FL (83-96); MEAN CORPUSCULAR HEMOGLOBIN 19.6 PG (28-34); MEAN CORPUSCULAR HGB CONC 30.1 g/dL (30-36); MEAN PLATELET VOLUME 8.9 FL (6.5-11.5); MONOCYTE# 0.9 X10e3 (0-1.0); MONOCYTE% 7.2 % (3.0-12.0); NEUTROPHIL# 8.5 X10e3 (1.5-7.1); PLATELET COUNT 167 X10e3 (140-420); RED BLOOD COUNT 5.86 X10e (3.90-5.60); RED CELL DISTRIBUTION WIDTH 15.6 % (11.0-15.5); WHITE BLOOD COUNT 12.9 X10e3 (4.0-10.5)
[2017-02-18 05:00] LABS: DIFF IND NO
[2017-02-18 05:45] LABS: %MB 1.1 % (0.0-4.0); MB 1.5 ng/ml
[2017-02-19] MEDS ORDERED: AUGMENTIN PO (12:03)
[2017-02-19] MEDS ORDERED: ALBUTEROL17 GM INH (12:06)
[2017-02-19 23:39] LABS: HA AB IGM (HEPPAN) Nonreactive (()); HB CORE AB IGM (HEPPAN) Reactive (Nonreactive); HB S AG (HEPPAN) Nonreactive (Nonreactive); HEP C AB (HEPPAN) Reactive (Nonreactive)
== END 2017-02-19 12:42 | disposition home or self-care (01) | DRG 871 ==
LOC: CED 11:07 → CEDOF 15:05 → C5C 15:44 → CED 15:44 → CEDOF 15:44 → C5C 20:31 → CEDOF 20:31 → C5C 02-18 07:35
PROVIDERS: Emergency Medicine; Family Medicine
DX: A41.9 Sepsis, unspecified organism (principal); J69.0 Pneumonitis due to inhalation of food and vomit; N17.9 Acute kidney failure, unspecified; M62.82 Rhabdomyolysis; F17.200 Nicotine dependence, unspecified, uncomplicated; Z82.61 Family history of arthritis; D64.9 Anemia, unspecified; F19.10 Other psychoactive substance abuse, uncomplicated
CPT/HCPCS: 31500; 36415; 36600; 51702; 70450; 71010; 71020; 80048; 80053; 80074; 80076; 80307; 81003; 82308; 82550; 82553; 82803; 82947; 83605; 83874; 83880; 84484; 85025; 85610; 85730; 87040; 87070; 87205; 87522; 87806; 93005; 93306; 94002; 94640; 94760; 96365; 96366; 96368; 96375; 97165; 99285; 99291; 99292; G0480; G8987-GO; G8988-GO; G8989-GO; J0133; J0330; J0696; J1885; J2543; J3260; J3370